=== PATIENT | female | born 1970 | race Caucasian/White ===

== ENCOUNTER 2016-11-15 15:56 | Inpatient (IN) ==
[2016-11-15] MEDS ORDERED: *HR* Promethazine 25 MG/ML VIAL IVP ONE ×2 (16:15→18:33)
[2016-11-15] MEDS ORDERED: 0.9 % Sodium Chloride 1,000 ML IVC ONE ×2 (16:15→18:34)
--- NOTE | 2016-11-15 16:21 | Emergency Department Note ---
Disposition Clinical Impression: Intractable generalized abdominal pain, Colitis, Dehydration Disposition: Admitted As Inpatient Condition: Fair Time of Disposition: 19:45 Abdominal Pain HPI - General Chief Complaint: ED Abdominal Pain Stated Complaint: ABD Pain N/V/D Time Seen by Provider: 11/15/16 16:03 Source: patient, family Nursing Notes Reviewed: Yes Vital Signs Reviewed: Yes - History of Present Illness HPI Narrative: Patient is a 46-year-old female who presents to [facility] ED with a chief complaint of abdominal pain, nausea vomiting and diarrhea. States her symptoms first started when she had an elective ovarian surgery back in August 2016. This was complicated by infection and then colitis followed by admission to [facility] for sepsis and C. difficile colitis. States she finished a course of vancomycin in September and her symptoms had improved quite a bit. However this last month, she has had worsening abdominal pain followed by nausea vomiting and diarrhea worse over this last week. She just followed up with the GI physician here today who ordered a multitude of tests. Patient states she felt too weak after her appointment and very lightheaded so she decided to come to the emergency department for a faster workup. Pt Subjective Complaint: abdominal pain Onset (ago): week(s) Consistency: Worsening Location: diffuse Pain Severity: severe Pain Scale: 10 Quality: cramping, aching, fullness Radiation: none Migration to: no migration Improves with: nothing Worsens with: eating Context: history of similar episodes Associated symptoms: Reports: nausea, vomiting, diarrhea Treatments prior to arrival: none - Related Data Allergies Allergy/AdvReac Type Severity Reaction Status Date / Time morphine Allergy Rash Verified 11/15/16 15:59 ondansetron Allergy Headache Verified 11/15/16 15:59 [From Zofran (as hydrochloride)] Penicillins Allergy Rash Verified 11/15/16 15:59 All systems ED: reviewed and negative except as stated. Abdominal Pain PMH - Past Medical History Medical history: Reports: other Female Surgical History: Reports: other Psychiatric history: Reports: no psych history - Social History Smoking status: Never smoker Alcohol use: Reports: none Drug use: Reports: none Physical Exam - General Limitations: no limitations General appearance: alert, in no apparent distress - Head Head exam: atraumatic, normocephalic, normal inspection - Eye Eye exam: Present: normal appearance, PERRL, EOMI - ENT ENT exam: normal exam, normal oropharynx, mucous membranes moist - Neck Neck exam: Present: normal inspection, full ROM, trachea midline - Chest Chest inspection: Present: normal inspection, symmetric chest wall rise - Respiratory Respiratory exam: Present: normal lung sounds bilaterally - Cardiovascular Cardiovascular exam: Present: normal rhythm, tachycardia - Abdominal Exam Abdominal exam: Present: soft, tenderness, diminished bowel sounds Abdominal tenderness: Present: diffuse, moderate - Extremities Exam Extremities exam: Present: normal inspection, full ROM. Absent: tenderness, pedal edema - Back Exam Back exam: Present: normal inspection, full ROM. Absent: tenderness - Neurological Exam Neurological exam: Present: alert, oriented X3 - Psychiatric Psychiatric exam: Present: normal affect, normal mood - Skin Skin exam: Present: warm, dry, intact, normal color Course Course Narrative: Patient seen and examined. Abdominal pain, nausea vomiting and diarrhea for the last several weeks. Worse over this week. Concern for worsening colitis. Inability to tolerate oral intake and possible dehydration. We will get some abdominal labs as well as a urine analysis. We will place an IV and give her fluids. We will try and get records from [facility] which she was recently at earlier this week. She did have a CAT scan that showed colitis there. Vital Signs Temperature 97.9 F 11/15/16 15:59 Pulse Rate 106 11/15/16 15:59 Respiratory Rate 18 11/15/16 15:59 Blood Pressure 119/75 11/15/16 15:59 O2 Sat by Pulse Oximetry 96 11/15/16 15:59 Temperature 97.9 F 11/15/16 15:59 Pulse Rate 89 11/15/16 18:31 Respiratory Rate 13 11/15/16 19:32 Blood Pressure 143/100 11/15/16 19:32 O2 Sat by Pulse Oximetry 94 L 11/15/16 18:31 Oxygen Delivery Oxygen Delivery Room Air Abdominal Pain - Medical Records Medical records reviewed: Yes I reviewed the patient's medical records. - Lab Data Lab results reviewed: Yes I reviewed the patient's lab results. Result diagrams: 11/15/16 16:17 11/15/16 16:17 Lab Results 11/15/16 11/15/16 11/15/16 Range/Units 16:17 16:17 16:17 WBC 16.5 H (4.3-11.1) K/mcL RBC 5.08 H (3.82-4.97) M/mcL Hgb 14.9 (11.5-15.4) g/dL Hct 44.0 (35.3-44.9) % MCV 86.6 (83.0-100.0) fL MCH 29.3 (28.0-33.3) pg MCHC 33.9 (31.6-35.5) g/dL RDW 12.1 (11.5-14.5) % Plt Count 351 (140-400) K/mcL MPV 10.0 (9.4-12.4) fL Immature Gran % 0.4 (0-4) % Seg Neutrophils % 81.4 % Lymphocytes % 11.0 % Monocytes % 5.2 % Eosinophils % 1.5 % Basophils % 0.5 % Neutrophils # 13.4 H (1.6-8.9) K/mcL Lymphocytes # 1.8 (0.6-4.6) K/mcL Monocytes # 0.9 (0.0-1.3) K/mcL Eosinophils # 0.2 (0.0-0.6) K/mcL Basophils # 0.1 (0.0-0.2) K/mcL Sodium 140 (136-145) mEq/L Potassium 3.9 (3.5-4.5) mEq/L Chloride 104 (98-109) mEq/L Carbon Dioxide 24 (19-29) mEq/L BUN 14 (7-20) mg/dL Creatinine 0.86 (0.57-1.11) mg/dL Est GFR ( Amer) > 60 (> 60) Est GFR (Non-Af Amer) > 60 (> 60) BUN/Creatinine Ratio 16 (6-26) Glucose 124 H (70-99) mg/dL Calculated Osmolality 292 (280-300) Lactic Acid (0.5-2.2) mmol/L Calcium 9.3 (8.6-10.8) mg/dL Total Bilirubin 0.5 (0.2-1.2) mg/dL Direct Bilirubin 0.2 (0.0-0.5) mg/dL Indirect Bilirubin 0.3 (0.0-1.2) mg/dL AST 14 (5-34) Units/L ALT 35 (0-55) Units/L Alkaline Phosphatase 89 (38-126) Units/L Serum Total Protein 7.8 (6.0-8.3) g/dL Albumin 3.9 (3.5-5.0) g/dL Globulin 3.9 H (2.4-3.5) g/dL Albumin/Globulin Ratio 1.0 L (1.1-2.2) Lipase 5 L (8-78) Units/L Urine Color (Yellow) Urine Clarity (Clear) Urine pH (5.0-8.0) pH Units Ur Specific Gibson (1.010-1.025) Urine Protein (Neg-Trace) mg/dL Urine Glucose (UA) (Normal) mg/dL Urine Ketones (Negative) mg/dL Urine Blood (Negative) Urine Nitrite (Negative) Urine Bilirubin (Negative) Urine Urobilinogen (Normal) mg/dL Ur Leukocyte Esterase (Negative) Ur Culture Indicated? (NO) Urine Test (Negative) Stl C. cayetanensis PCR Not detected (Not detect) Stool Rotavirus A PCR Not detected (Not detect) Stl Adenov F 40/41 PCR Not detected (Not detect) Stool Astrovirus (PCR) Not detected (Not detect) Stool Campylobacter PCR Not detected (Not detect) Stl C. diff Tox A/B PCR Not detected (Not detect) Stool Cryptosporidium PCR Not detected (Not detect) Stl Sh Tox Pr E STEC PCR Not detected (Not detect) Stool E coli O157 PCR Not detected (Not detect) Stl Enterotoxigenic E PCR Not detected (Not detect) Stool EPEC (PCR) Not detected (Not detect) Stool EAEC (PCR) Not detected (Not detect) Stl E. histolytica PCR Not detected (Not detect) Stool Giardia Lamblia PCR Not detected (Not detect) Stool Salmonella PCR Not detected (Not detect) Stool Sapovirus (PCR) Not detected (Not detect) Stl P. shigelloides PCR Not detected (Not detect) Stl Shigella/EIEC PCR Not detected (Not detect) St Y.enterocolitica PCR Not detected (Not detect) Stool Vibrio (PCR) Not detected (Not detect) Stl Vibrio cholerae PCR Not detected (Not detect) Stl Norovirus GI/GII PCR Not detected (Not detect) Stl GI Panel (PCR) Com See below 11/15/16 11/15/16 11/15/16 Range/Units 16:44 18:22 18:22 WBC (4.3-11.1) K/mcL RBC (3.82-4.97) M/mcL Hgb (11.5-15.4) g/dL Hct (35.3-44.9) % MCV (83.0-100.0) fL MCH (28.0-33.3) pg MCHC (31.6-35.5) g/dL RDW (11.5-14.5) % Plt Count (140-400) K/mcL MPV (9.4-12.4) fL Immature Gran % (0-4) % Seg Neutrophils % % Lymphocytes % % Monocytes % % Eosinophils % % Basophils % % Neutrophils # (1.6-8.9) K/mcL Lymphocytes # (0.6-4.6) K/mcL Monocytes # (0.0-1.3) K/mcL Eosinophils # (0.0-0.6) K/mcL Basophils # (0.0-0.2) K/mcL Sodium (136-145) mEq/L Potassium (3.5-4.5) mEq/L Chloride (98-109) mEq/L Carbon Dioxide (19-29) mEq/L BUN (7-20) mg/dL Creatinine (0.57-1.11) mg/dL Est GFR ( Amer) (> 60) Est GFR (Non-Af Amer) (> 60) BUN/Creatinine Ratio (6-26) Glucose (70-99) mg/dL Calculated Osmolality (280-300) Lactic Acid 0.8 (0.5-2.2) mmol/L Calcium (8.6-10.8) mg/dL Total Bilirubin (0.2-1.2) mg/dL Direct Bilirubin (0.0-0.5) mg/dL Indirect Bilirubin (0.0-1.2) mg/dL AST (5-34) Units/L ALT (0-55) Units/L Alkaline Phosphatase (38-126) Units/L Serum Total Protein (6.0-8.3) g/dL Albumin (3.5-5.0) g/dL Globulin (2.4-3.5) g/dL Albumin/Globulin Ratio (1.1-2.2) Lipase (8-78) Units/L Urine Color Yellow (Yellow) Urine Clarity Clear (Clear) Urine pH 6.5 (5.0-8.0) pH Units Ur Specific Gibson 1.018 (1.010-1.025) Urine Protein Negative (Neg-Trace) mg/dL Urine Glucose (UA) Normal (Normal) mg/dL Urine Ketones Negative (Negative) mg/dL Urine Blood Negative (Negative) Urine Nitrite Negative (Negative) Urine Bilirubin Negative (Negative) Urine Urobilinogen Normal (Normal) mg/dL Ur Leukocyte Esterase Negative (Negative) Ur Culture Indicated? NO (NO) Urine Test Negative (Negative) Stl C. cayetanensis PCR (Not detect) Stool Rotavirus A PCR (Not detect) Stl Adenov F 40/41 PCR (Not detect) Stool Astrovirus (PCR) (Not detect) Stool Campylobacter PCR (Not detect) Stl C. diff Tox A/B PCR (Not detect) Stool Cryptosporidium PCR (Not detect) Stl Sh Tox Pr E STEC PCR (Not detect) Stool E coli O157 PCR (Not detect) Stl Enterotoxigenic E PCR (Not detect) Stool EPEC (PCR) (Not detect) Stool EAEC (PCR) (Not detect) Stl E. histolytica PCR (Not detect) Stool Giardia Lamblia PCR (Not detect) Stool Salmonella PCR (Not detect) Stool Sapovirus (PCR) (Not detect) Stl P. shigelloides PCR (Not detect) Stl Shigella/EIEC PCR (Not detect) St Y.enterocolitica PCR (Not detect) Stool Vibrio (PCR) (Not detect) Stl Vibrio cholerae PCR (Not detect) Stl Norovirus GI/GII PCR (Not detect) Stl GI Panel (PCR) Com - Radiology Data Radiology results reviewed: Yes I reviewed the patient's radiology results. Attestation Statement - Attestation Attestation: I examined this patient and my medical decision-making was reviewed with the SEGMENTAL PAVING SUPERVISOR/PA/Advanced Practice Nurse/Resident Physician. I agree with the documented findings, disposition and treatment plan as described except to the extent set forth below. 46-year-old female presents ED because of abdominal pain, diarrhea and generalized weakness. She had a complicated oophorectomy a couple months ago that resulted in secondary wound infection and sepsis. Thereafter she had a be readmitted for C. difficile colitis and was treated with 2 rounds of oral antibiotics including vancomycin. She now has recurrence of diarrhea but has had further testing for C. difficile was negative. Recent visit to another facility results of the CT that showed colitis. She had received 1 dose of IV steroids 2 days ago at this facility along with starting oral Cipro and Flagyl. She has had worsening nausea and vomiting and unable to retain the medications , prompting her to come to the ED. Diarrhea is persistent quantitated as 10-20 times per day. Complains of diffuse, crampy abdominal pain. No measured fevers , chills or rigors. No chest pain or dyspnea. No dysuria, hematuria pyuria. Patient is in no acute physiologic distress appears uncomfortable. Oropharynx clear mucous membranes dry. Neck is supple. Trachea midline. Chest clear to auscultation with good air entry in all lung marquez. Cardiac exam tachycardic regular. Abdomen soft with very active bowel sounds throughout. Diffuse abdominal tenderness. Extremities warm and dry. IV was placed and she was given aggressive IV fluids along with IV Cipro and Flagyl to supplement what she was unable to take orally. She did have a significant increase of her white count is 16,000. Given the escalation of her symptoms repeat imaging was done which was unremarkable except for notation of the previously described colitis. No perforation or abscess noted. She continued moderate pain along with nausea and ultimately was admitted to the hospital for pain control, IV fluids and IV antibiotics along with further evaluation.
[2016-11-15 16:35] LABS: Basophils # 0.1 K/mcL (0.0-0.2); Basophils % 0.5 %; Eosinophils # 0.2 K/mcL (0.0-0.6); Eosinophils % 1.5 %; Hemoglobin 14.9 g/dL (11.5-15.4); Immature Granulocytes % 0.4 % (0-4); Lymphocytes # 1.8 K/mcL (0.6-4.6); Mean Corpuscular HGB Conc 33.9 g/dL (31.6-35.5); Mean Corpuscular Hemoglobin 29.3 pg (28.0-33.3); Mean Corpuscular Volume 86.6 fL (83.0-100.0); Monocytes # 0.9 K/mcL (0.0-1.3); Monocytes % 5.2 %; Neutrophils # 13.4 K/mcL (1.6-8.9); Platelet Count 351 K/mcL (140-400); Red Blood Count 5.08 M/mcL (3.82-4.97); Red Cell Distribution Width 12.1 % (11.5-14.5); Segmented Neutrophils % 81.4 %
[2016-11-15] MEDS ORDERED: MetroNIDAZOLE 500 MG/100 ML 500 MG/100 ML BAG IVPB ONE (16:37)
[2016-11-15 16:52] LABS: Alanine Aminotransferase 35 Units/L (0-55); Albumin 3.9 g/dL (3.5-5.0); Alkaline Phosphatase 89 Units/L (38-126); Aspartate Amino Transferase 14 Units/L (5-34); BUN/Creatinine Ratio 16 (6-26); Bilirubin,Direct 0.2 mg/dL (0.0-0.5); Bilirubin,Indirect 0.3 mg/dL (0.0-1.2); Bilirubin,Total 0.5 mg/dL (0.2-1.2); Blood Urea Nitrogen 14 mg/dL (7-20); Calcium 9.3 mg/dL (8.6-10.8); Carbon Dioxide 24 mEq/L (19-29); Chloride 104 mEq/L (98-109); Globulin 3.9 g/dL (2.4-3.5); Glucose 124 mg/dL (70-99); Lipase 5 Units/L (8-78); Osmolality,Calculated 292 (280-300); Potassium 3.9 mEq/L (3.5-4.5); Sodium 140 mEq/L (136-145); Total Protein 7.8 g/dL (6.0-8.3); eGFR For African Americans > 60 (> 60); eGFR For Non-African Americans > 60 (> 60)
[2016-11-15] MEDS ORDERED: *HR* HYDROmorphone (PF) 1 MG/ML SYRINGE IVP ONE ×2 (17:15→18:34)
[2016-11-15 17:49] LABS: Adenovirus F 40/41 PCR Not detected (Not detect); Astrovirus PCR Not detected (Not detect); C.difficile Toxin A/B by PCR Not detected (Not detect); Campylobacter by PCR Not detected (Not detect); Cryptosporidium by PCR Not detected (Not detect); Cyclospora cayetanensis PCR Not detected (Not detect); E. coli O157 by PCR Not detected (Not detect); Entamoeba histolytica PCR Not detected (Not detect); Enteroaggregative E.coli(EAEC) Not detected (Not detect); Enteropathogenic E.coli(EPEC) Not detected (Not detect); Enterotoxigenic E.coli (ETEC) Not detected (Not detect); Giardia lamblia PCR Not detected (Not detect); Norovirus GI/GII PCR Not detected (Not detect); Plesiomonas shigelloides PCR Not detected (Not detect); Rotavirus A PCR Not detected (Not detect); Salmonella PCR Not detected (Not detect); Sapovirus PCR Not detected (Not detect); Shig/EnteroinvasiveE coli EIEC Not detected (Not detect); Shigalike tox-prod E coli STEC Not detected (Not detect); Vibrio PCR Not detected (Not detect); Vibrio cholerae PCR Not detected (Not detect); Yersinia enterocolitica PCR Not detected (Not detect)
[2016-11-15 18:39] LABS: Bilirubin,Urine Negative (Negative); Blood,Urine Negative (Negative); Clarity,Urine Clear (Clear); Color,Urine Yellow (Yellow); Glucose,Urine (UA) Normal (Normal); Ketones,Urine Negative (Negative); Leukocyte Esterase,Urine Negative (Negative); Nitrite,Urine Negative (Negative); PH,Urine 6.5 pH Units (5.0-8.0); Protein,Urine Negative (Neg-Trace); Specific Gravity,Urine 1.018 (1.010-1.025); Urobilinogen,Urine Normal (Normal)
[2016-11-15] MEDS ORDERED: *HR* Promethazine 25 MG/ML VIAL IVP PRN (20:58)
[2016-11-15] MEDS ORDERED: Naloxone 0.4 MG/ML INJ IVP PRN (20:58)
[2016-11-15] MEDS ORDERED: Acetaminophen 325 MG TABLET PO PRN (20:58)
--- NOTE | 2016-11-15 21:08 | Internal Med History&Physical ---
Date of Encounter: 11/15/16 Time of Encounter: 21:06 Assessment and Plan (1) Intractable generalized abdominal pain Current visit: Yes Status: Acute hycosamine pain management consult to GI (2) Diarrhea Current visit: Yes Status: Acute daily fiber supplementation Qualifiers: Diarrhea type: unspecified type Qualified Code(s): R19.7 - Diarrhea, unspecified (3) Nausea & vomiting Current visit: Yes Status: Acute phenergan PRN scopolamine Qualifiers: Vomiting type: unspecified Vomiting Intractability: non-intractable Qualified Code(s): R11.2 - Nausea with vomiting, unspecified (4) Colitis Current visit: Yes Status: Acute CRP Internal Medicine - H&P: HPI Chief complaint: abdominal pain Admitted From: Emergency Dept Plans for Post Hospital Care: Home History of present illness: Ms. Lee is a 46 year old female who had surgery 2 months ago to remove her ovary, which was all that was left of her pelvic reproductive organs and was told that her colon was inflamed during surgery. This surgery was complicated by infection, colitis, and eventually sepsis leading to admittance at [facility]. She was treated for C. difficile colitis with vancomycin and discharged home on oral vancomycin. She states that her symptoms were improving and she went back to work for a couple of days when her symptoms relapsed. She was rechecked for C. difficile and was negative. She has been to the emergency department 3 times in the previous 72 hours for these complaints and had an appointment with a GI doctor earlier today. She is currently complaining of diffuse constant abdominal pain with added waves of pain, constant rectal pressure, and nausea and diarrhea if she eats anything. She states that she has pencil thin stools and very small amounts of stool. She states she was being worked up in the GI doctor's office and had to make several trips to the restroom and determined that she could just not go on with the pain at the level that it currently was. Review of records from [facility] shows the following assessment/plan: *Diarrhea - complete stool testing, colonoscopy, fiber supplementation *Abdominal bloating - Gas-X or Beano *Hepatic steatosis - complete liver workup and liver ultrasound *Non-intractable vomiting with nausea - continue Phenergan, start scopolamine, EGD, stop Reglan *Chronic prescription benzodiazepine use *Generalized abdominal pain - stop Bentyl, start Hycosamine *Rectal pain - start Proctozone cream Past Med Surg Social Fam HX - Past Medical History Attestation: Yes The following information was validated with the patient. Source: patient, old records reviewed Medical history: liver disease (hepatic steatosis), other Psychiatric history: anxiety - Social History Smoking Status: Never smoker Smokeless Tobacco Status: No Alcohol use: none Drug use: none Occupational status: employed (RN) Current living situation: Home - Independent Activity Level: Independent ambulation Internal Medicine - H&P: Meds Amitriptyline [Elavil] 25 mg PO HS 11/15/16 [History] Cyclobenzaprine [Flexeril] 10 mg PO TID PRN 11/15/16 [History] Hydrocortisone [Proctozone-Hc] 1 appl TP BID 11/15/16 [History] Hyoscyamine Sulfate [Hyoscyamine Sulfate ER] 0.375 mg PO Q12H 11/15/16 [History] Ibuprofen [Motrin] 600 mg PO Q8HR PRN 11/15/16 [History] Indomethacin [Indocin] 25 mg PO TIDWM 11/15/16 [History] LORazepam [Ativan] 0.5 mg PO BID PRN 11/15/16 [History] Loperamide HCl [Imodium A-D] 2 mg PO Q4H PRN 11/15/16 [History] Oxycodone HCl/Acetaminophen [Percocet 5-325 mg Tablet] 1 each PO Q6H PRN [History] Scopolamine Patch [Transderm-Scop] 1.5 mg TD Q72H 11/15/16 [History] Allergies morphine Allergy (Verified 11/15/16 15:59) Rash ondansetron [From Zofran (as hydrochloride)] Allergy (Verified 11/15/16 15:59) Headache Penicillins Allergy (Verified 11/15/16 15:59) Rash All Systems PM: A 10-system review of systems was performed and is negative for pertinent findings except as documented above in the HPI. - Constitutional Constitutional: chills, fatigue, fever(s), lethargy, no night sweats - EENT Eyes: blurry vision, no change in vision, no discharge, no pain, no photophobia Ears: no ear discharge, no ear pain, no tinnitus Nose, mouth and throat: no dysphagia, no nasal discharge, no neck pain, no sore throat - Breasts Breasts: other (cysts) - Cardiovascular Cardiovascular ROS IM: no chest pain, no diaphoresis, no dyspnea, no lightheadedness, no palpitations, no syncope - Respiratory Respiratory: no cough, no dyspnea, no wheezing, no excessive phlegm production - Gastrointestinal Gastrointestinal: abdominal pain, bloating, change in bowel habits, change in stool character (pencil thin stool), cramping, diarrhea, heartburn, loose stools , nausea, tenesmus, vomiting, no hematemesis, no hematochezia, no melena - Genitourinary Genitourinary: breast change in shape, breast mass, no change in urinary stream , no dysuria, no flank pain, no hematuria Menstruation: post menopausal - Musculoskeletal Musculoskeletal ROS IM: no arthralgias, no muscle cramps, no myalgias, no numbness, no tingling - Integumentary Integumentary IM: no new lesions, no rash, no unusual bruising - Neurological Neurological ROS: no confusion, no convulsions, no focal weakness, no headache(s ), no numbness, no tingling, no tremor(s) - Hematologic/Lymphatic Hematologic/Lymphatic: no easy bruising - Constitutional Vitals: Temp Pulse Resp BP Pulse Ox 97.9 F 89 13 143/100 94 L 11/15/16 15:59 11/15/16 18:31 11/15/16 19:32 11/15/16 19:32 11/15/16 18:31 General appearance: Present: A&O X 3, no acute distress, answers questions appropriately - Head Head exam: Present: atraumatic, normocephalic - Eye Eye exam: Present: PERRL, conjuntiva pink, sclera anicteric Pupils: Present: PERRL - ENT ENT exam: Present: mucous membranes moist - Neck Neck exam general surgery: Present: supple, trachea midline. Absent: lymphadenopathy - Respiratory Respiratory exam: Present: CTAB. Absent: accessory muscle use, rales, rhonchi, wheezes - Cardiovascular Cardiovascular exam: Present: RRR, +S1, +S2. Absent: diastolic murmur, gallop, rubs, systolic murmur - GI/Abdominal GI/Abdominal exam: Present: normal bowel sounds, soft, tenderness (moderate diffuse), no peritoneal signs. Absent: distended - Extremities Exam Extremities exam: Present: warm, radial pulses palpable and symetrical. Absent : calf tenderness, cyanotic, pedal edema - Neurological Exam Neurological exam: Present: CN II-XII intact, oriented X3, no focal deficits. Absent: pronater drift, facial droop, speech deficit - Skin Skin exam: Present: dry, intact Internal Med - H&P Results - Labs CBC & Chem 7: 11/15/16 16:17 11/15/16 16:17
[2016-11-15] MEDS: 0.9 % Sodium Chloride 1,000 ML IVC SCH (22:21)
[2016-11-15] MEDS: Scopolamine Patch 1.5 MG PATCH.TD72 TD SCH (22:23)
[2016-11-15] MEDS: *HR* LORazepam 0.5 MG TABLET PO PRN (22:23)
[2016-11-15] MEDS: Hydrocortisone Rectal 2.5% CRM 28 GM TUBE RC SCH (22:25)
[2016-11-15] MEDS: *HR* HYDROcodone/Acet 5/325 mg TABLET PO SCH (23:39)
[2016-11-15] MEDS: Simethicone 80 MG TAB.CHEW PO PRN (23:39)
[2016-11-15] MEDS: Hyoscyamine SL 0.125 MG TAB.SUBL PO SCH (23:39)
[2016-11-15] MEDS: *HR* Heparin 5,000 UNIT/ML VIAL SQ SCH (23:39)
[2016-11-16] MEDS: *HR* HYDROmorphone (PF) 1 MG/ML SYRINGE IVP PRN ×5 (02:04→21:49)
[2016-11-16] MEDS: MetroNIDAZOLE 500 MG/100 ML 500 MG/100 ML BAG IVPB SCH ×3 (02:04→16:15)
[2016-11-16] MEDS: *HR* HYDROcodone/Acet 5/325 mg TABLET PO SCH ×5 (04:58→20:30)
[2016-11-16 05:40] LABS: BUN/Creatinine Ratio 10 (6-26); Blood Urea Nitrogen 7 mg/dL (7-20); Calcium 8.5 mg/dL (8.6-10.8); Carbon Dioxide 23 mEq/L (19-29); Chloride 109 mEq/L (98-109); Glucose 95 mg/dL (70-99); Osmolality,Calculated 292 (280-300); Potassium 3.6 mEq/L (3.5-4.5); Sodium 142 mEq/L (136-145); eGFR For African Americans > 60 (> 60); eGFR For Non-African Americans > 60 (> 60)
[2016-11-16 05:43] LABS: Basophils # 0.1 K/mcL (0.0-0.2); Basophils % 0.5 %; Eosinophils # 0.3 K/mcL (0.0-0.6); Eosinophils % 3.4 %; Hematocrit 39.1 % (35.3-44.9); Hemoglobin 13.4 g/dL (11.5-15.4); Immature Granulocytes % 0.4 % (0-4); Lymphocytes # 2.5 K/mcL (0.6-4.6); Lymphocytes % 26.4 %; Mean Corpuscular HGB Conc 34.3 g/dL (31.6-35.5); Mean Corpuscular Volume 87.7 fL (83.0-100.0); Mean Platelet Volume 10.5 fL (9.4-12.4); Monocytes # 0.7 K/mcL (0.0-1.3); Monocytes % 7.2 %; Neutrophils # 5.8 K/mcL (1.6-8.9); Platelet Count 320 K/mcL (140-400); Red Blood Count 4.46 M/mcL (3.82-4.97); Red Cell Distribution Width 12.3 % (11.5-14.5); Segmented Neutrophils % 62.1 %
[2016-11-16] MEDS: *HR* Heparin 5,000 UNIT/ML VIAL SQ SCH ×3 (06:16→21:22)
[2016-11-16] MEDS: Hyoscyamine SL 0.125 MG TAB.SUBL PO SCH ×2 (08:01→20:30)
[2016-11-16] MEDS: Psyllium 1 PACKET POWD.PACK PO SCH ×3 (08:01→20:30)
[2016-11-16] MEDS: Hydrocortisone Rectal 2.5% CRM 28 GM TUBE RC SCH ×2 (08:02→21:22)
[2016-11-16] MEDS: Simethicone 80 MG TAB.CHEW PO PRN (10:42)
--- NOTE | 2016-11-16 11:40 | Gastroenterology Consult Note ---
<KatzEdwardo Pedro - Last Filed: 11/16/16 11:38> Date of Encounter: 11/16/16 Time of Encounter: 10:15 - Assessment and plan (1) Rectal pain Current Visit: Yes Status: Acute Assessment and plan: No abnormality on exam. Continue fiber supplement and plan for colonoscopy on Saturday. (2) Colitis Current Visit: Yes Status: Acute Assessment and plan: CT A/P with mild acute inflammation of the cecum and proximal ascending colon, no obstruction, perforation or abscess. Severe hepatic steatosis. Findings suspicious for cholelithiasis with no CT evidence of acute inflammation or biliary obstruction. Continue Cipro and Flagyl. Plan for colonoscopy on Saturday. Can start clear liquid diet now, and advance as tolerated. Clear liquid diet Saturday, no red or purple. NPO at midnight Saturday night. If unable tolerate NuLytely please use MiraLAX prep. If not clear by 6 AM Saturday, give 2 tap water enemas. (3) Diarrhea Current Visit: Yes Status: Acute Assessment and plan: Likely secondary to colitis. GI panel negative. Fecal calprotectin ordered. CRP elevated at 41. Plan for colonoscopy on Saturday. Continue fiber supplement. Qualifiers: Diarrhea type: unspecified type Qualified Code(s): R19.7 - Diarrhea, unspecified (4) Intractable generalized abdominal pain Current Visit: Yes Status: Acute Assessment and plan: Consider EGD on Saturday. Continue PPI and hyoscyamine. Patient does appear to be more comfortable today than yesterday. (5) Nausea & vomiting Current Visit: Yes Status: Acute Assessment and plan: Continue Phenergan, scopolamine, and IV fluids. Qualifiers: Vomiting type: unspecified Vomiting Intractability: non-intractable Qualified Code(s): R11.2 - Nausea with vomiting, unspecified - Time Spent With Patient Total time spent is greater than 50% in coordination of care (as documented) at patient's floor/unit and/or counseling patient: GI History of Present Illness - Data of Consult Patient: known to practice within the last 3 years Consult date: 11/16/16 Requesting Physician: Lady Heard - Consult Narrative Reason for consult: N/V, diarrhea, abdominal pain History of present illness: Ms. Lee is a 46 year old female who had surgery 2 months ago to remove her ovary, and was told that her colon was inflamed during surgery. Following surgery she developed infection, colitis, and eventually sepsis and was admitted to [facility]. She also developed C. difficile colitis and was treated with vancomycin. Diarrhea improved following treatment, but then recurred within a "couple of days". Recheck of C. difficile was negative. She was seen in office yesterday complaints of diffuse abdominal pain, rectal pressure, nausea and vomiting, and diarrhea. She also states that her stools are "pencil thin". She also complained of excessive gas and bloating. During the office visit patient made several trips to the restroom and stated that she "could not go on" and we transported her to the ED for further evaluation. Stool sample was collected during the office visit and is negative. CT A/P with mild acute inflammation of the cecum and proximal ascending colon, no obstruction, perforation or abscess. Severe hepatic steatosis. Findings suspicious for cholelithiasis with no CT evidence of acute inflammation or biliary obstruction. Procedures: EGD and colonoscopy completed 2001 in [place], normal per pt report. NSAIDs: Ibuprofen Anticoagulation: None Past Med Surg Social Fam HX - Past Medical History Medical history: liver disease (hepatic steatosis), other Psychiatric history: anxiety - Past Surgical History Surgical History: other - Social History Smoking Status: Never smoker Smokeless Tobacco Status: No Alcohol use: none Drug use: none - Family History Mother Living Status: Still Living Hx Family Endocrine Disorder: Yes (DM) Father Living Status: Still Living Hx Family Cardiac Disorders: Yes (AFIB) Hx Family Endocrine Disorder: Yes (DM) - Gastrointestinal Gastrointestinal: Present: as per HPI - Constitutional Constitutional: as per HPI - EENT Eyes: as per HPI Ears: Present: as per HPI Nose, mouth and throat: Present: as per HPI - Cardiovascular Cardiovascular ROS: Present: as per HPI - Respiratory Respiratory IM: Present: as per HPI - Genitourinary Genitourinary: Absent: change in color, Urinary frequency - Neurological ROS Neurological GI: Present: as per HPI - Hematologic/Lymphatic Hematologic/Lymphatic pediatric: Present: as per HPI - Musculoskeletal Musculoskeletal ROS GI: Present: as per HPI - Integumentary Integumentary GI: Present: as per HPI - Psychiatric ROS Psychiatric GI: Present: as per HPI - Endocrine Endocrine IM: Present: as per HPI - Constitutional Vitals: Temp Pulse Resp BP Pulse Ox 97.4 F L 62 20 136/88 98 11/16/16 10:57 11/16/16 10:57 11/16/16 10:57 11/16/16 10:57 11/16/16 10:57 General appearance: Present: cooperative, A&O X 3, no acute distress, answers questions appropriately - Head Head exam: Present: atraumatic, normocephalic - Eye Eye exam: Present: normal appearance, sclera anicteric - ENT ENT exam: Present: mucous membranes moist - Neck Neck exam general surgery: Present: normal inspection, trachea midline - Respiratory Respiratory exam: Present: CTAB. Absent: rales, rhonchi - Cardiovascular Cardiovascular exam: Present: RRR, +S1, +S2 - GI/Abdominal GI/Abdominal exam: Present: normal bowel sounds, soft, tenderness (generalized, mostly LLQ), no peritoneal signs. Absent: distended, firm, guarding - Rectal Rectal exam: Present: normal inspection, normal rectal tone. Absent: black stool, bloody stool - Extremities Exam Extremities exam: Present: warm - Neurological Exam Neurological exam: Present: no focal deficits - Psychiatric Psychiatric exam: Present: normal affect, normal mood - Skin Skin exam: Present: dry, intact, normal color, warm Results - Labs CBC & Chem 7: 11/16/16 04:39 11/16/16 04:39 Labs: Last Result Calcium 8.5 mg/dL (8.6-10.8) L 11/16/16 04:39 C-Reactive Protein 41 mg/L (Less than 5) H 11/16/16 04:39 Entire Visit Hgb 13.4 g/dL (11.5-15.4) D 11/16/16 04:39 Hct 39.1 % (35.3-44.9) 11/16/16 04:39 Total Bilirubin 0.5 mg/dL (0.2-1.2) 11/15/16 16:17 AST 14 Units/L (5-34) 11/15/16 16:17 ALT 35 Units/L (0-55) 11/15/16 16:17 Lipase 5 Units/L (8-78) L 11/15/16 16:17 Consult Discharge Plan - Plan Referrals: James Olmos MD [Primary Care Provider] - <Deric Jo - Last Filed: 11/16/16 13:00> Date of Encounter: 11/16/16 Time of Encounter: 11:30 - Time Spent With Patient Total time spent is greater than 50% in coordination of care (as documented) at patient's floor/unit and/or counseling patient: GI History of Present Illness - Data of Consult Requesting Physician: Lady Heard - Consult Narrative History of present illness: Ms. Lee is a 46 year old female - Constitutional Vitals: Temp Pulse Resp BP Pulse Ox 97.4 F L 62 20 136/88 98 11/16/16 10:57 11/16/16 10:57 11/16/16 10:57 11/16/16 10:57 11/16/16 10:57 Results - Labs CBC & Chem 7: 11/16/16 04:39 11/16/16 04:39 Labs: Last Result Calcium 8.5 mg/dL (8.6-10.8) L 11/16/16 04:39 C-Reactive Protein 41 mg/L (Less than 5) H 11/16/16 04:39 Entire Visit Hgb 13.4 g/dL (11.5-15.4) D 11/16/16 04:39 Hct 39.1 % (35.3-44.9) 11/16/16 04:39 Total Bilirubin 0.5 mg/dL (0.2-1.2) 11/15/16 16:17 AST 14 Units/L (5-34) 11/15/16 16:17 ALT 35 Units/L (0-55) 11/15/16 16:17 Lipase 5 Units/L (8-78) L 11/15/16 16:17 - Attending Attestation I examined this patient and my medical decision-making was reviewed with the TURBINE INSPECTOR/PA/Advanced Practice Nurse/Resident Physician. I agree with the documented findings, disposition and treatment plan as described except to the extent set forth below.
--- NOTE | 2016-11-16 12:58 | Internal Med Progress Note ---
<Madelin Shahid - Last Filed: 11/16/16 13:22> Date of Encounter: 11/16/16 Time of Encounter: 10:45 - Assessment and plan (1) Intractable generalized abdominal pain Current Visit: Yes Status: Acute Assessment and plan: Pt states that she is feeling better today, still having pain, but is better than yesterday. Nausea is controlled as well. Continue IV antibiotics Continue PPI and Hycosamine. (2) Colitis Current Visit: Yes Status: Acute Assessment and plan: WBC 9.3 today. Will continue IV Cipro and Flagyl. Clear liquid diet now, clear liquid diet on Saturday without any red or purple NPO at midnight on Saturday for procedure. Colonoscopy on Saturday. (3) Nausea & vomiting Current Visit: Yes Status: Acute Assessment and plan: Continue phenergan and IV fluids. Well controlled at this time. Qualifiers: Vomiting type: unspecified Vomiting Intractability: non-intractable Qualified Code(s): R11.2 - Nausea with vomiting, unspecified (4) Diarrhea Current Visit: Yes Status: Acute Assessment and plan: Continue increased fiber and will have scope on Saturday morning. Qualifiers: Diarrhea type: unspecified type Qualified Code(s): R19.7 - Diarrhea, unspecified (5) Rectal pain Current Visit: Yes Status: Acute Assessment and plan: Plan as above. States that pain is better today. (6) Obesity (BMI 30.0-34.9) Current Visit: Yes Status: Chronic Assessment and plan: Chronic. Will discuss lifestyle modifications. - Time Spent With Patient less than 15 minutes - Subjective Interval history: Pt states that she feels a lot better today than she did yesterday. Abd remains tender to palpation, but again she states that today is better than yesterday. She indicates that her pain is primarily in RLQ and umbilical and is pressure. Nausea is controlled. She also verbalizes concern over the constant pain in her breasts that she has had evaluated at [facility], has multiple cysts, and has declined surgery and aspiration. - Constitutional Vitals: Temp Pulse Resp BP Pulse Ox 97.4 F L 62 20 136/88 98 11/16/16 10:57 11/16/16 10:57 11/16/16 10:57 11/16/16 10:57 11/16/16 10:57 General appearance: Present: cooperative, A&O X 3, no acute distress, answers questions appropriately - Neck Neck exam general surgery: Present: full ROM, lymphadenopathy, normal inspection. Absent: tenderness - Respiratory Respiratory exam: Present: accessory muscle use, CTAB. Absent: chest wall tenderness, decreased breath sounds, rales, rhonchi, stridor, wheezes - Cardiovascular Cardiovascular exam: Present: RRR, +S1, +S2. Absent: diastolic murmur, systolic murmur - GI/Abdominal GI/Abdominal exam: Present: hypoactive bowel sounds, soft, tenderness - Extremities Exam Extremities exam: Present: full ROM, normal capillary refill, warm, radial pulses palpable and symetrical. Absent: cyanotic, pedal edema, tenderness - Neurological Exam Neurological exam: Present: alert, oriented X3, strengths equal and symetr throughout. Absent: speech deficit Internal Medicine: Result - Labs CBC & Chem 7: 11/16/16 04:39 11/16/16 04:39 Labs: Short CBC 11/16/16 Range/Units 04:39 WBC 9.3 (4.3-11.1) K/mcL Hgb 13.4 D (11.5-15.4) g/dL Hct 39.1 (35.3-44.9) % Plt Count 320 (140-400) K/mcL Neutrophils # 5.8 (1.6-8.9) K/mcL BMP 11/16/16 04:39 Sodium 142 Potassium 3.6 Chloride 109 Carbon Dioxide 23 BUN 7 Creatinine 0.70 Glucose 95 Calcium 8.5 L Consult Discharge Plan - Plan Referrals: James Olmos MD [Primary Care Provider] - <Lady Rodriguez - Last Filed: 11/16/16 13:51> Date of Encounter: 11/16/16 Time of Encounter: 13:00 - Subjective Interval history: Patient seen and examined. On examination, patient resting supine in bed. She states her pain is currently controlled however states her nausea is not controlled. She states she is allergic to Zofran, we will change her Phenergan to IV. On examination, abdomen diffusely tender and worse on the right side. Bowel sounds present in all 4 quadrants however patient has not been flatulent since admission. We will continue to monitor for signs of bowel obstruction and repeat imaging if indicated. We will continue clear liquid diet until her procedure. Urinalysis negative. Stool culture negative. Continue Cipro and Flagyl as well as pain and nausea control. Bowel prep Saturday, colonoscopy Saturday. - Constitutional Vitals: Temp Pulse Resp BP Pulse Ox 97.4 F L 62 20 136/88 98 11/16/16 10:57 11/16/16 10:57 11/16/16 10:57 11/16/16 10:57 11/16/16 10:57 General appearance: Present: cooperative, A&O X 3, no acute distress, answers questions appropriately - Head Head exam: Present: atraumatic, normocephalic - Eye Eye exam: Present: PERRL, conjuntiva pink, sclera anicteric Pupils: Present: PERRL - Neck Neck exam general surgery: Present: full ROM, normal inspection, supple, trachea midline. Absent: lymphadenopathy, tenderness - Respiratory Respiratory exam: Present: CTAB. Absent: accessory muscle use, rales, respiratory distress, rhonchi, wheezes - Cardiovascular Cardiovascular exam: Present: RRR, +S1, +S2. Absent: diastolic murmur, gallop, rubs, systolic murmur - GI/Abdominal GI/Abdominal exam: Present: distended (mildly), normal bowel sounds, soft, tenderness, no peritoneal signs - Extremities Exam Extremities exam: Present: full ROM, normal capillary refill, warm, radial pulses palpable and symetrical. Absent: calf tenderness, cyanotic, pedal edema - Neurological Exam Neurological exam: Present: alert, CN II-XII intact, oriented X3, no focal deficits, strengths equal and symetr throughout. Absent: pronater drift, facial droop, speech deficit - Skin Skin exam: Present: dry, intact, pallor, warm Internal Medicine: Result - Labs CBC & Chem 7: 11/16/16 04:39 11/16/16 04:39
[2016-11-16] MEDS: 0.9 % Sodium Chloride 1,000 ML IVC SCH ×2 (13:16→21:44)
[2016-11-16] MEDS: *HR* LORazepam 0.5 MG TABLET PO PRN ×2 (13:17→21:44)
[2016-11-16] MEDS ORDERED: *HR* Promethazine 25 MG/ML VIAL IVP PRN (13:47)
[2016-11-16] MEDS ORDERED: Metoclopramide 10 MG/2 ML VIAL IVP PRN (18:07)
[2016-11-16] MEDS ORDERED: Bismuth Subsalicylate 120 ML ORAL SUSPENSION PO PRN (18:08)
[2016-11-17] MEDS: *HR* HYDROcodone/Acet 5/325 mg TABLET PO SCH ×7 (00:21→20:02)
[2016-11-17] MEDS: MetroNIDAZOLE 500 MG/100 ML 500 MG/100 ML BAG IVPB SCH (00:21)
[2016-11-17] MEDS: *HR* HYDROmorphone (PF) 1 MG/ML SYRINGE IVP PRN ×2 (03:11→16:12)
[2016-11-17 04:30] LABS: Basophils # 0.1 K/mcL (0.0-0.2); Eosinophils # 0.4 K/mcL (0.0-0.6); Eosinophils % 5.2 %; Hematocrit 40.4 % (35.3-44.9); Hemoglobin 13.2 g/dL (11.5-15.4); Immature Granulocytes % 0.4 % (0-4); Lymphocytes # 2.2 K/mcL (0.6-4.6); Lymphocytes % 32.6 %; Mean Corpuscular HGB Conc 32.7 g/dL (31.6-35.5); Mean Corpuscular Hemoglobin 29.4 pg (28.0-33.3); Monocytes # 0.6 K/mcL (0.0-1.3); Neutrophils # 3.6 K/mcL (1.6-8.9); Platelet Count 327 K/mcL (140-400); Red Blood Count 4.49 M/mcL (3.82-4.97); Red Cell Distribution Width 12.3 % (11.5-14.5); Segmented Neutrophils % 52.8 %
[2016-11-17 04:42] LABS: BUN/Creatinine Ratio 13 (6-26); Blood Urea Nitrogen 11 mg/dL (7-20); Calcium 8.6 mg/dL (8.6-10.8); Carbon Dioxide 23 mEq/L (19-29); Chloride 108 mEq/L (98-109); Glucose 119 mg/dL (70-99); Magnesium 2.1 mg/dL (1.6-2.6); Osmolality,Calculated 295 (280-300); Sodium 142 mEq/L (136-145); eGFR For African Americans > 60 (> 60); eGFR For Non-African Americans > 60 (> 60)
[2016-11-17] MEDS: *HR* Heparin 5,000 UNIT/ML VIAL SQ SCH ×3 (05:01→23:15)
[2016-11-17 05:03] LABS: C-Reactive Protein 25 mg/L (Less than 5)
[2016-11-17] MEDS: Psyllium 1 PACKET POWD.PACK PO SCH ×3 (08:30→20:02)
[2016-11-17] MEDS: Cetirizine HCl 5 MG/5 ML UDC PO SCH (08:31)
[2016-11-17] MEDS: Hyoscyamine SL 0.125 MG TAB.SUBL PO SCH ×2 (08:31→20:02)
[2016-11-17] MEDS: Hydrocortisone Rectal 2.5% CRM 28 GM TUBE RC SCH ×2 (09:07→20:03)
--- NOTE | 2016-11-17 12:10 | Internal Med Progress Note ---
Date of Encounter: 11/17/16 Time of Encounter: 12:07 - Assessment and plan (1) Colitis Current Visit: Yes Status: Acute Assessment and plan: Will continue IV Cipro and Flagyl. Clear liquid diet now, clear liquid diet on Saturday without any red or purple NPO at midnight on Saturday for procedure. Colonoscopy on Saturday. mild inflammation on CT abd, no abscess or diverticulitis. (2) Diarrhea Current Visit: Yes Status: Acute Assessment and plan: Continue increased fiber and seen by GI, possible colonoscopy on saturday. will dc the imodium continue fiber diet. Qualifiers: Diarrhea type: unspecified type Qualified Code(s): R19.7 - Diarrhea, unspecified (3) Nausea & vomiting Current Visit: Yes Status: Acute Assessment and plan: Continue phenergan and IV fluids. Well controlled at this time. Qualifiers: Vomiting type: unspecified Vomiting Intractability: non-intractable Qualified Code(s): R11.2 - Nausea with vomiting, unspecified (4) Rash Current Visit: Yes Status: Acute Assessment and plan: non specific, macular , more on the face than the body. will make the benadryl scheduled q6h reassured the patient that its not antonia melissa syndrome cautious with phenergan as thats in her allergy list dc reglan , will monitor - Time Spent With Patient 25 - 35 minutes - Subjective Interval history: seen at the bedside, c/o rash in her face and her body. c/o mild itching, denies swelling of the tongue or sob. admmits to not passing today and reports that she received imodium yesterday. she says she probably had a rxn to reglan and does not want it. - Constitutional Vitals: Temp Pulse Resp BP Pulse Ox 97.5 F L 94 16 142/88 96 11/17/16 10:35 11/17/16 10:35 11/17/16 10:35 11/17/16 10:35 11/17/16 10:35 General appearance: Present: cooperative, A&O X 3, no acute distress, answers questions appropriately Exam: - Neck Neck exam general surgery: Present: full ROM, lymphadenopathy, normal inspection. Absent: tenderness - Respiratory Respiratory exam: Present: accessory muscle use, CTAB. Absent: chest wall tenderness, decreased breath sounds, rales, rhonchi, stridor, wheezes - Cardiovascular Cardiovascular exam: Present: RRR, +S1, +S2. Absent: diastolic murmur, systolic murmur - GI/Abdominal GI/Abdominal exam: Present: hypoactive bowel sounds, soft, mild tenderness on the left and the right lower quad. - Extremities Exam Extremities exam: Present: full ROM, normal capillary refill, warm, radial pulses palpable and symetrical. Absent: cyanotic, pedal edema, tenderness - Neurological Exam Neurological exam: Present: alert, oriented X3, strengths equal and symetr throughout. Absent: speech deficit Internal Medicine: Result - Labs CBC & Chem 7: 11/17/16 03:49 11/17/16 03:49 Labs: Short CBC 11/17/16 Range/Units 03:49 WBC 6.9 (4.3-11.1) K/mcL Hgb 13.2 (11.5-15.4) g/dL Hct 40.4 (35.3-44.9) % Plt Count 327 (140-400) K/mcL Neutrophils # 3.6 (1.6-8.9) K/mcL BMP 11/17/16 03:49 Sodium 142 Potassium 4.0 Chloride 108 Carbon Dioxide 23 BUN 11 Creatinine 0.83 Glucose 119 H Calcium 8.6 - Impressions Impressions Liver Ultrasound 11/16/16 18:00 IMPRESSION: Hepatic steatosis. Minimal gallbladder sludge. No evidence of cholelithiasis. D/ / Jimbo Carnes MD / Jimbo Carnes MD Interpreting Provider: Jimbo Carnes MD Consult Discharge Plan - Plan Referrals: James Olmos MD [Primary Care Provider] -
[2016-11-17] MEDS: 0.9 % Sodium Chloride 1,000 ML IVC SCH (14:29)
[2016-11-17] MEDS: *HR* Promethazine 25 MG/ML VIAL IVP PRN (20:03)
[2016-11-17] MEDS: *HR* LORazepam 0.5 MG TABLET PO PRN (20:04)
[2016-11-17] MEDS: Nystatin SUSP 5 ML UD.LIQ PO SCH (23:15)
[2016-11-17] MEDS: Simethicone 80 MG TAB.CHEW PO PRN (23:21)
[2016-11-18] MEDS: *HR* HYDROcodone/Acet 5/325 mg TABLET PO SCH ×6 (00:06→20:18)
[2016-11-18] MEDS: *HR* HYDROmorphone (PF) 1 MG/ML SYRINGE IVP PRN ×3 (01:44→22:58)
[2016-11-18] MEDS: *HR* Promethazine 25 MG/ML VIAL IVP PRN ×3 (03:28→18:18)
[2016-11-18] MEDS: 0.9 % Sodium Chloride 1,000 ML IVC SCH (05:05)
[2016-11-18] MEDS: *HR* Heparin 5,000 UNIT/ML VIAL SQ SCH ×3 (05:44→22:30)
[2016-11-18] MEDS: Cetirizine HCl 5 MG/5 ML UDC PO SCH (08:47)
[2016-11-18] MEDS: MetroNIDAZOLE 500 MG/100 ML 500 MG/100 ML BAG IVPB SCH ×2 (08:48→18:05)
[2016-11-18] MEDS: Psyllium 1 PACKET POWD.PACK PO SCH ×3 (08:48→20:19)
[2016-11-18] MEDS: Hydrocortisone Rectal 2.5% CRM 28 GM TUBE RC SCH ×2 (08:48→20:20)
[2016-11-18] MEDS: Nystatin SUSP 5 ML UD.LIQ PO SCH ×4 (08:48→20:18)
[2016-11-18 08:58] LABS: Basophils # 0.1 K/mcL (0.0-0.2); Basophils % 1.3 %; Eosinophils # 0.4 K/mcL (0.0-0.6); Eosinophils % 6.6 %; Hematocrit 40.5 % (35.3-44.9); Hemoglobin 13.7 g/dL (11.5-15.4); Immature Granulocytes % 0.5 % (0-4); Immature Platelets 3.2 % (1.1-6.1); Lymphocytes # 2.4 K/mcL (0.6-4.6); Lymphocytes % 39.3 %; Mean Corpuscular HGB Conc 33.8 g/dL (31.6-35.5); Mean Corpuscular Hemoglobin 30.5 pg (28.0-33.3); Mean Corpuscular Volume 90.2 fL (83.0-100.0); Monocytes # 0.5 K/mcL (0.0-1.3); Monocytes % 8.1 %; Neutrophils # 2.7 K/mcL (1.6-8.9); Platelet Count 319 K/mcL (140-400); Red Blood Count 4.49 M/mcL (3.82-4.97); Red Cell Distribution Width 12.2 % (11.5-14.5); Segmented Neutrophils % 44.2 %
[2016-11-18 09:16] LABS: BUN/Creatinine Ratio 13 (6-26); Blood Urea Nitrogen 10 mg/dL (7-20); Calcium 8.8 mg/dL (8.6-10.8); Carbon Dioxide 25 mEq/L (19-29); Chloride 107 mEq/L (98-109); Glucose 108 mg/dL (70-99); Osmolality,Calculated 292 (280-300); Potassium 3.9 mEq/L (3.5-4.5); Sodium 141 mEq/L (136-145); eGFR For African Americans > 60 (> 60); eGFR For Non-African Americans > 60 (> 60)
[2016-11-18] MEDS: Hyoscyamine SL 0.125 MG TAB.SUBL PO SCH ×2 (10:27→20:19)
--- NOTE | 2016-11-18 10:43 | Internal Med Progress Note ---
Date of Encounter: 11/18/16 Time of Encounter: 10:41 - Assessment and plan (1) Colitis Current Visit: Yes Status: Acute Assessment and plan: Will continue IV Cipro and Flagyl. Clear liquid diet today NPO at midnight for colonoscopy tomm mild inflammation on CT abd, no abscess or diverticulitis. (2) Diarrhea Current Visit: Yes Status: Acute Assessment and plan: Continue increased fiber and seen by GI, possible colonoscopy on saturday. will dc the imodium continue fiber diet. Qualifiers: Diarrhea type: unspecified type Qualified Code(s): R19.7 - Diarrhea, unspecified (3) Nausea & vomiting Current Visit: Yes Status: Acute Assessment and plan: Continue phenergan and IV fluids. still c/o nausea allergic to zofran and refuses to take reglan. Qualifiers: Vomiting type: unspecified Vomiting Intractability: non-intractable Qualified Code(s): R11.2 - Nausea with vomiting, unspecified (4) Rash Current Visit: Yes Status: Acute Assessment and plan: non specific, macular , more on the face than the body, much better today terence pereira scheduled q6h reassured the patient that its not antonia melissa syndrome cautious with phenergan as thats in her allergy list - Time Spent With Patient 25 - 35 minutes - Subjective Interval history: seen at the bedside, rash appears to be horseradish maker today. c/o mild itching, denies swelling of the tongue or sob. admmits to not passing stool and reports nausea , she is on fibers. she says she probably had a rxn to reglan and does not want it. - Constitutional Vitals: Temp Pulse Resp BP Pulse Ox 97.8 F 88 16 129/92 96 11/18/16 10:00 11/18/16 10:00 11/18/16 10:00 11/18/16 10:00 11/18/16 10:00 General appearance: Present: cooperative, A&O X 3, no acute distress, answers questions appropriately Exam: - Neck Neck exam general surgery: Present: full ROM, lymphadenopathy, normal inspection. Absent: tenderness - Respiratory Respiratory exam: Present: accessory muscle use, CTAB. Absent: chest wall tenderness, decreased breath sounds, rales, rhonchi, stridor, wheezes - Cardiovascular Cardiovascular exam: Present: RRR, +S1, +S2. Absent: diastolic murmur, systolic murmur - GI/Abdominal GI/Abdominal exam: Present: hypoactive bowel sounds, soft, mild tenderness, - Extremities Exam Extremities exam: Present: full ROM, normal capillary refill, warm, radial pulses palpable and symetrical. Absent: cyanotic, pedal edema, tenderness - Neurological Exam Neurological exam: Present: alert, oriented X3, strengths equal and symetr throughout. Absent: speech deficit Internal Medicine: Result - Labs CBC & Chem 7: 11/18/16 08:45 11/18/16 08:45 Labs: Short CBC 11/18/16 Range/Units 08:45 WBC 6.1 (4.3-11.1) K/mcL Hgb 13.7 (11.5-15.4) g/dL Hct 40.5 (35.3-44.9) % Plt Count 319 (140-400) K/mcL Neutrophils # 2.7 (1.6-8.9) K/mcL BMP 11/18/16 08:45 Sodium 141 Potassium 3.9 Chloride 107 Carbon Dioxide 25 BUN 10 Creatinine 0.79 Glucose 108 H Calcium 8.8 Consult Discharge Plan - Plan Referrals: James Olmos MD [Primary Care Provider] -
[2016-11-18] MEDS ORDERED: SODIUM CHLORIDE/NAHCO3/KCL/PEG 4,000 ML SOLN.RECON PO ONE ×2 (17:00→18:15)
[2016-11-18] MEDS ORDERED: Polyethylene Glycol 3350 255 GM POWDER PO ONE (22:07)
[2016-11-18] MEDS: Scopolamine Patch 1.5 MG PATCH.TD72 TD SCH (22:28)
[2016-11-19] MEDS: *HR* HYDROcodone/Acet 5/325 mg TABLET PO SCH ×4 (00:12→12:05)
[2016-11-19] MEDS: MetroNIDAZOLE 500 MG/100 ML 500 MG/100 ML BAG IVPB SCH ×3 (00:12→16:47)
[2016-11-19] MEDS: *HR* Promethazine 25 MG/ML VIAL IVP PRN ×3 (01:27→23:05)
[2016-11-19] MEDS: 0.9 % Sodium Chloride 1,000 ML IVC SCH (01:28)
[2016-11-19] MEDS: *HR* Heparin 5,000 UNIT/ML VIAL SQ SCH ×3 (04:26→22:55)
[2016-11-19] MEDS: *HR* HYDROmorphone (PF) 1 MG/ML SYRINGE IVP PRN (06:19)
[2016-11-19 08:17] LABS: Basophils % 0.3 %; Eosinophils % 0.1 %; Hematocrit 41.7 % (35.3-44.9); Hemoglobin 14.1 g/dL (11.5-15.4); Immature Granulocytes % 0.4 % (0-4); Immature Platelets 3.6 % (1.1-6.1); Lymphocytes # 1.1 K/mcL (0.6-4.6); Lymphocytes % 9.8 %; Mean Corpuscular HGB Conc 33.8 g/dL (31.6-35.5); Mean Corpuscular Hemoglobin 29.9 pg (28.0-33.3); Mean Corpuscular Volume 88.3 fL (83.0-100.0); Mean Platelet Volume 9.6 fL (9.4-12.4); Monocytes # 0.4 K/mcL (0.0-1.3); Monocytes % 3.2 %; Platelet Count 348 K/mcL (140-400); Red Blood Count 4.72 M/mcL (3.82-4.97); Red Cell Distribution Width 12.2 % (11.5-14.5); Segmented Neutrophils % 86.2 %
[2016-11-19 08:23] LABS: Neutrophils # 9.7 K/mcL (1.6-8.9)
[2016-11-19 08:30] LABS: BUN/Creatinine Ratio 9 (6-26); Blood Urea Nitrogen 7 mg/dL (7-20); Calcium 9.2 mg/dL (8.6-10.8); Carbon Dioxide 24 mEq/L (19-29); Chloride 104 mEq/L (98-109); Glucose 139 mg/dL (70-99); Osmolality,Calculated 286 (280-300); Potassium 3.8 mEq/L (3.5-4.5); Sodium 138 mEq/L (136-145); eGFR For African Americans > 60 (> 60); eGFR For Non-African Americans > 60 (> 60)
[2016-11-19] MEDS: Nystatin SUSP 5 ML UD.LIQ PO SCH ×4 (09:00→22:54)
[2016-11-19] MEDS: Psyllium 1 PACKET POWD.PACK PO SCH ×3 (09:00→22:47)
[2016-11-19] MEDS: Cetirizine HCl 5 MG/5 ML UDC PO SCH (09:01)
[2016-11-19] MEDS: Hyoscyamine SL 0.125 MG TAB.SUBL PO SCH (09:01)
[2016-11-19] MEDS: Hydrocortisone Rectal 2.5% CRM 28 GM TUBE RC SCH ×2 (09:15→23:00)
--- NOTE | 2016-11-19 16:42 | Internal Med Progress Note ---
Date of Encounter: 11/19/16 Time of Encounter: 16:40 - Assessment and plan (1) Colitis Current Visit: Yes Status: Acute Assessment and plan: Will continue IV Cipro and Flagyl. NPO , planned for EGD and colonoscopy however patient did not tolerate the bowel preparation last night. mild inflammation on CT abd, no abscess or diverticulitis. We will wait for recommendations from GI. (2) Nausea & vomiting Current Visit: Yes Status: Acute Assessment and plan: Continue phenergan and IV fluids. still c/o nausea and vomiting. Possible secondary to not tolerating the bowel preparation. allergic to zofran and refuses to take reglan. Qualifiers: Vomiting type: unspecified Vomiting Intractability: non-intractable Qualified Code(s): R11.2 - Nausea with vomiting, unspecified (3) Rash Current Visit: Yes Status: Acute Assessment and plan: non specific, macular , more on the face than the body, much better today conitnue benadryl scheduled q6h reassured the patient that its not antonia melissa syndrome cautious with phenergan as thats in her allergy list - Time Spent With Patient 25 - 35 minutes - Subjective Interval history: seen at the bedside, c/o multiple episodes vomiting reports that she could not tolerate the miralax last night. she has not moved her bowels properly , planned for possibel EGD today.will follow GI recommendtaions - Constitutional Vitals: Temp Pulse Resp BP Pulse Ox 99.2 F 108 16 153/105 96 11/19/16 14:00 11/19/16 14:00 11/19/16 14:00 11/19/16 14:00 11/19/16 14:00 General appearance: Present: cooperative, A&O X 3, no acute distress, answers questions appropriately Exam: - Neck Neck exam general surgery: Present: full ROM, lymphadenopathy, normal inspection. Absent: tenderness - Respiratory Respiratory exam: Present: accessory muscle use, CTAB. Absent: chest wall tenderness, decreased breath sounds, rales, rhonchi, stridor, wheezes - Cardiovascular Cardiovascular exam: Present: RRR, +S1, +S2. Absent: diastolic murmur, systolic murmur - GI/Abdominal GI/Abdominal exam: Present: hypoactive bowel sounds, soft, mild tenderness, - Extremities Exam Extremities exam: Present: full ROM, normal capillary refill, warm, radial pulses palpable and symetrical. Absent: cyanotic, pedal edema, tenderness - Neurological Exam Neurological exam: Present: alert, oriented X3, strengths equal and symetr throughout. Absent: speech deficit Internal Medicine: Result - Labs CBC & Chem 7: 11/19/16 08:09 11/19/16 08:09 Labs: Short CBC 11/19/16 Range/Units 08:09 WBC 11.3 H D (4.3-11.1) K/mcL Hgb 14.1 (11.5-15.4) g/dL Hct 41.7 (35.3-44.9) % Plt Count 348 (140-400) K/mcL Neutrophils # 9.7 H (1.6-8.9) K/mcL BMP 11/19/16 08:09 Sodium 138 Potassium 3.8 Chloride 104 Carbon Dioxide 24 BUN 7 Creatinine 0.75 Glucose 139 H Calcium 9.2 Consult Discharge Plan - Plan Referrals: James Olmos MD [Primary Care Provider] - 11/28/16 3:45 pm
[2016-11-19] MEDS ORDERED: *HR* Midazolam HCl 5 MG/5 ML VIAL IVP ONE (19:23)
[2016-11-19] MEDS ORDERED: *HR* FentaNYL (PF) 100 MCG/2 ML VIAL ONE (19:24)
[2016-11-19] MEDS ORDERED: Simethicone 40 MG/0.6 ML MLS IR ONE (19:44)
[2016-11-19] MEDS: *HR* FentaNYL (PF) 100 MCG/2 ML VIAL IVP PRN ×3 (19:44→19:54)
[2016-11-19] MEDS: *HR* Midazolam HCl 5 MG/5 ML VIAL IVP PRN ×3 (19:44→19:54)
[2016-11-19] MEDS ORDERED: Tetracaine/Benzocaine/Butamben 200MG/SPRAY (100SPY/BOT) MM ONE (19:44)
--- NOTE | 2016-11-19 19:44 | Pre-Sedation Evaluation ---
Pre-sedation evaluation - Pre-sedation checklist Recent Vitals: Last Vital Signs Temp 98.7 F 11/19/16 19:19 Pulse 98 11/19/16 19:36 Resp 16 11/19/16 19:36 BP 154/103 11/19/16 19:36 Pulse Ox 94 L 11/19/16 19:36 ASA Classification *see protocol: CLASS II-Mild systemic disease, CLASS IV- Severe systemic disease/constant threat to pt's life Plan of Care: Pt appropriate candidate for procedure/moderate/conscious sedation , Risks/benefits of procedure/sedation discussed w/ patient/family
[2016-11-19] MEDS: Hyoscyamine SL 0.125 MG TAB.SUBL SL SCH (22:54)
[2016-11-19] MEDS: *HR* LORazepam 0.5 MG TABLET PO PRN (22:54)
[2016-11-20] MEDS: MetroNIDAZOLE 500 MG/100 ML 500 MG/100 ML BAG IVPB SCH ×3 (00:10→17:33)
[2016-11-20] MEDS: *HR* HYDROcodone/Acet 5/325 mg TABLET PO PRN ×2 (02:52→22:09)
[2016-11-20] MEDS: *HR* HYDROmorphone (PF) 1 MG/ML SYRINGE IVP PRN ×3 (04:32→18:24)
[2016-11-20] MEDS: *HR* Heparin 5,000 UNIT/ML VIAL SQ SCH ×3 (06:54→21:57)
--- NOTE | 2016-11-20 07:52 | Internal Med Progress Note ---
Date of Encounter: 11/20/16 - Constitutional Vitals: Temp Pulse Resp BP Pulse Ox 98.1 F 86 16 138/91 94 L 11/20/16 07:08 11/20/16 07:08 11/20/16 07:08 11/20/16 07:08 11/20/16 07:08 General appearance: Present: cooperative, A&O X 3, no acute distress, answers questions appropriately Internal Medicine: Result - Labs CBC & Chem 7: 11/19/16 08:09 11/19/16 08:09 Labs: Short CBC 11/19/16 Range/Units 08:09 WBC 11.3 H D (4.3-11.1) K/mcL Hgb 14.1 (11.5-15.4) g/dL Hct 41.7 (35.3-44.9) % Plt Count 348 (140-400) K/mcL Neutrophils # 9.7 H (1.6-8.9) K/mcL BMP 11/19/16 08:09 Sodium 138 Potassium 3.8 Chloride 104 Carbon Dioxide 24 BUN 7 Creatinine 0.75 Glucose 139 H Calcium 9.2 Consult Discharge Plan - Plan Referrals: James Olmos MD [Primary Care Provider] - 11/28/16 3:45 pm
[2016-11-20] MEDS: *HR* Promethazine 25 MG/ML VIAL IVP PRN ×2 (09:16→18:24)
[2016-11-20] MEDS: Nystatin SUSP 5 ML UD.LIQ PO SCH ×4 (09:49→21:57)
[2016-11-20] MEDS: Hyoscyamine SL 0.125 MG TAB.SUBL SL SCH ×3 (09:49→22:16)
[2016-11-20] MEDS: Psyllium 1 PACKET POWD.PACK PO SCH ×3 (09:49→21:57)
[2016-11-20] MEDS: Simethicone 80 MG TAB.CHEW PO PRN (09:50)
[2016-11-20] MEDS: Hydrocortisone Rectal 2.5% CRM 28 GM TUBE RC SCH ×2 (09:51→21:59)
[2016-11-20] MEDS: 0.9 % Sodium Chloride 1,000 ML IVC SCH ×2 (09:51→22:09)
[2016-11-20] MEDS: *HR* LORazepam 0.5 MG TABLET PO PRN (22:09)
[2016-11-21] MEDS: MetroNIDAZOLE 500 MG/100 ML 500 MG/100 ML BAG IVPB SCH ×2 (00:10→09:18)
[2016-11-21] MEDS: *HR* HYDROmorphone (PF) 1 MG/ML SYRINGE IVP PRN (00:11)
[2016-11-21] MEDS: *HR* Promethazine 25 MG/ML VIAL IVP PRN (03:30)
[2016-11-21] MEDS: *HR* Heparin 5,000 UNIT/ML VIAL SQ SCH (06:32)
[2016-11-21] MEDS: Psyllium 1 PACKET POWD.PACK PO SCH (09:17)
[2016-11-21] MEDS: Hydrocortisone Rectal 2.5% CRM 28 GM TUBE RC SCH (09:18)
[2016-11-21] MEDS: Nystatin SUSP 5 ML UD.LIQ PO SCH (09:18)
[2016-11-21] MEDS: *HR* HYDROcodone/Acet 5/325 mg TABLET PO PRN (09:22)
[2016-11-21 09:57] LABS: Basophils # 0.1 K/mcL (0.0-0.2); Basophils % 1.3 %; Eosinophils # 0.4 K/mcL (0.0-0.6); Hemoglobin 12.9 g/dL (11.5-15.4); Immature Granulocytes % 0.7 % (0-4); Lymphocytes # 2.4 K/mcL (0.6-4.6); Lymphocytes % 35.1 %; Mean Corpuscular HGB Conc 33.1 g/dL (31.6-35.5); Mean Corpuscular Hemoglobin 30.4 pg (28.0-33.3); Monocytes # 0.6 K/mcL (0.0-1.3); Monocytes % 8.8 %; Neutrophils # 3.2 K/mcL (1.6-8.9); Platelet Count 262 K/mcL (140-400); Red Blood Count 4.24 M/mcL (3.82-4.97); Red Cell Distribution Width 12.6 % (11.5-14.5); Segmented Neutrophils % 48.1 %
[2016-11-21 10:09] LABS: BUN/Creatinine Ratio 13 (6-26); Blood Urea Nitrogen 10 mg/dL (7-20); Calcium 8.3 mg/dL (8.6-10.8); Carbon Dioxide 26 mEq/L (19-29); Chloride 110 mEq/L (98-109); Glucose 122 mg/dL (70-99); Osmolality,Calculated 296 (280-300); Potassium 3.7 mEq/L (3.5-4.5); Sodium 143 mEq/L (136-145); eGFR For African Americans > 60 (> 60); eGFR For Non-African Americans > 60 (> 60)
--- NOTE | 2016-11-21 10:23 | Discharge Summary ---
Date of Encounter: 11/21/16 Time of Encounter: 10:02 - Discharge Diagnosis (1) Colitis Priority: Primary Status: Acute (2) Nausea & vomiting Priority: Primary Status: Acute Qualifiers: Vomiting type: unspecified Vomiting Intractability: non-intractable Qualified Code(s): R11.2 - Nausea with vomiting, unspecified (3) Rash Priority: Primary Status: Acute - Discharge Medications Prescriptions: Ciprofloxacin [Cipro] 500 mg PO BID #10 tablet MetroNIDAZOLE [Flagyl] 500 mg PO TID #15 tablet Omeprazole [PriLOSEC] 20 mg PO DAILY@0630 #30 capsule. Oxycodone HCl/Acetaminophen [Percocet 5-325 mg Tablet] 1 each PO Q6H PRN #30 tablet PRN Reason: Pain Home Medications: Amitriptyline [Elavil] 25 mg PO HS 11/15/16 [History] Cyclobenzaprine [Flexeril] 10 mg PO TID PRN 11/15/16 [History] Hydrocortisone [Proctozone-Hc] 1 appl TP BID 11/15/16 [History] Hyoscyamine Sulfate [Hyoscyamine Sulfate ER] 0.375 mg PO Q12H 11/15/16 [History] Ibuprofen [Motrin] 600 mg PO Q8HR PRN 11/15/16 [History] LORazepam [Ativan] 0.5 mg PO BID PRN 11/15/16 [History] Scopolamine Patch [Transderm-Scop] 1.5 mg TD Q72H 11/15/16 [History] Ciprofloxacin [Cipro] 500 mg PO BID #10 tablet 11/21/16 [Rx] MetroNIDAZOLE [Flagyl] 500 mg PO TID #15 tablet 11/21/16 [Rx] Omeprazole [PriLOSEC] 20 mg PO DAILY@0630 #30 capsule. 11/21/16 [Rx] Oxycodone HCl/Acetaminophen [Percocet 5-325 mg Tablet] 1 each PO Q6H PRN #30 tablet 11/21/16 [Rx] Allergies/Adverse Reactions: Allergies morphine Allergy (Verified 11/15/16 15:59) Rash ondansetron [From Zofran (as hydrochloride)] Allergy (Verified 11/15/16 15:59) Headache Penicillins Allergy (Verified 11/15/16 15:59) Rash Date of admission: 11/16/16 13:09 Primary care physician: James Olmos MD Consults: 11/20/16 09:07 Consult to [employer] [CONS] Routine Reason for SW Consult: resources Discharging clinician: Janey Mast Anticipated date of discharge: 11/21/16 - Patient Status Disposition: Home, Self-Care Condition: Fair Functional capacity at discharge: independent ambulation Overall status at discharge: patient is progressing back to baseline - Discharge Instructions Follow Up With: James Olmos MD [Primary Care Provider] - 11/28/16 3:45 pm Deric Jo MD [Partnered Physician] - 12/05/16 3:15 pm (in 2 weeks, had biopsy from gastritis. ) - Diet and Activity Activity: resume usual activities as tolerated Diet: other (bland diet for 3-4 days and advance as tolerated.) Interval History: Ms. Lee is a 46 year old female who had surgery 2 months ago to remove her ovary, and was told that her colon was inflamed during surgery. Following surgery she developed infection, colitis, and eventually sepsis and was admitted to [facility]. She also developed C. difficile colitis and was treated with vancomycin. Diarrhea improved following treatment, but then recurred within a "couple of days". Recheck of C. difficile was negative. She was seen in office yesterday complaints of diffuse abdominal pain, rectal pressure, nausea and vomiting, and diarrhea. She also states that her stools are "pencil thin". She also complained of excessive gas and bloating. During the office visit patient made several trips to the restroom and stated that she "could not go on" and we transported her to the ED for further evaluation. Stool sample was collected during the office visit and is negative. CT A/P with mild acute inflammation of the cecum and proximal ascending colon, no obstruction, perforation or abscess. Severe hepatic steatosis. Findings suspicious for cholelithiasis with no CT evidence of acute inflammation or biliary obstruction. Procedures: EGD and colonoscopy completed 2001 in [place], normal per pt report. NSAIDs: Ibuprofen Anticoagulation: None she was admitted for further evaluation and GI was consulted. She underwent EGD and colonoscopy which showed only gastritis that was biopsied , colonoscopy was unremarkable. she refused reglan and says that she is allergic to zofran so she was continued on phenergan. he is being dc today in stable condition as there is no acute findings on johnna CT abdomen as well as EGD/colonoscopy. Hospital course: Ms. Lee is a 46 year old female Time spent discussing smoking cessation with patient: more than 10 minutes - Time Spent with Patient Total time spent providing and/or coordinating discharge services: Greater than 30 minutes - Constitutional Vitals: Temp Pulse Resp BP Pulse Ox 98.1 F 83 17 130/82 96 11/21/16 06:49 11/21/16 06:49 11/21/16 06:49 11/21/16 06:49 11/21/16 06:49 General appearance: Present: cooperative, A&O X 3, no acute distress, answers questions appropriately Exam: - Neck Neck exam general surgery: Present: full ROM, lymphadenopathy, normal inspection. Absent: tenderness - Respiratory Respiratory exam: Present: accessory muscle use, CTAB. Absent: chest wall tenderness, decreased breath sounds, rales, rhonchi, stridor, wheezes - Cardiovascular Cardiovascular exam: Present: RRR, +S1, +S2. Absent: diastolic murmur, systolic murmur - GI/Abdominal GI/Abdominal exam: Present:soft, non tender , bs are present - Extremities Exam Extremities exam: Present: full ROM, normal capillary refill, warm, radial pulses palpable and symetrical. Absent: cyanotic, pedal edema, tenderness - Neurological Exam Neurological exam: Present: alert, oriented X3, strengths equal and symetr throughout. Absent: speech deficit
[2016-11-21] MEDS: Hyoscyamine SL 0.125 MG TAB.SUBL SL SCH (10:33)
[2016-11-21] MEDS: *HR* LORazepam 0.5 MG TABLET PO PRN (11:20)
[2016-11-21 12:22] VITALS: BP 132/96
== END 2016-11-21 12:25 | disposition home or self-care (01) | DRG 392 ==
LOC: 3BNU 15:56 → EMEROO 15:56 → 3BNU 19:55 → 3ANU 11-16 18:53
PROVIDERS: ADMIT Family Medicine; ATTEND Nurse Practitioner Family
PROC: ENDOEBX (2016-11-19 14:30)
PROC: ENDOCBX (2016-11-19 14:30)